=== PATIENT | female | born 1975 | race African-American/Black ===

== ENCOUNTER 2018-08-18 14:34 | Emergency (ER) | payer MEDICAID, MEDICARE ==
--- NOTE | 2018-08-18 15:28 | RAD ---
4 VIEWS RIGHT KNEE: Date: 08/18/18 HISTORY: Trauma, swelling. FINDINGS: AP, lateral, and both oblique views of right knee obtained. Four views of the right knee demonstrate no significant evidence of right knee fractures, subluxation s, or acute bony lesions. No significant joint space narrowing is seen. No definite osteophytes are s een. IMPRESSION: Normal 4 views right knee. POS: [facility]
== END 2018-08-18 15:39 | disposition home or self-care (01) ==
LOC: ERS 14:34
DX: M25.561 Pain in right knee (principal); E78.5 Hyperlipidemia, unspecified; F31.9 Bipolar disorder, unspecified; G25.81 Restless legs syndrome; G47.30 Sleep apnea, unspecified; M81.0 Age-related osteoporosis without current pathological fracture; M06.9 Rheumatoid arthritis, unspecified; F17.200 Nicotine dependence, unspecified, uncomplicated; Z79.899 Other long term (current) drug therapy; Z71.6 Tobacco abuse counseling
CPT/HCPCS: 99406